=== PATIENT | male | born 1990 | race African-American/Black ===

== ENCOUNTER 2025-02-06 13:08 | Emergency (ER) | payer BC, SELFPAY ==
[2025-02-06 13:17] VITALS: BP 113/77; PULSE 72; RESP 16; TEMP 36.9; O2SAT 98
--- NOTE | 2025-02-06 13:36 | ED.MALEGU ---
HPI - Male Genitourinary General Chief complaint: Urogenital-Male Stated complaint: STD Exposure Time Seen by Provider: 02/06/25 13:29 Source: patient and RN notes reviewed Mode of arrival: ambulatory Limitations: no limitations History of Present Illness HPI Narrative: Patient presents today complaining of a white urethral discharge x1 week. Denies dysuria, hematuria, testicular pain or swelling, rash. States he had unprotected intercourse 1 week ago and has been notified by his partner yesterday that she has tested positive for chlamydia. Related Data Allergies Allergy/AdvReac Type Severity Reaction Status Date / Time No Known Allergies Allergy Verified 02/06/25 13:26 Review of Systems Review of Systems: CONSTITUTIONAL: Denies body aches, fever, chills, or sweats. EYES: Denies visual changes, redness, or discharge. ENT: Denies rhinorrhea, congestion, sore throat, or otalgia. CARDIOVASCULAR: Denies chest pain, palpitations, or edema. RESPIRATORY: Denies cough or dyspnea. GASTROINTESTINAL: Denies abdominal pain, nausea, vomiting, or diarrhea. GENITOURINARY: + urethral discharge. SKIN: Denies rash, itching, or wounds. MUSCULOSKELETAL: Denies back pain, joint pain, or myalgia. NEUROLOGIC: Denies headache, numbness, tingling, or weakness. PSYCH: Denies depression or anxiety. PMFSH Comments At time of signature, I have reviewed and agree with nursing past medical, surgical, social and family history unless otherwise noted. Please see nursing chart for further information. There is no relevant family history pertinent to the presenting complaint Exam Narrative: GENERAL: Well-appearing, well-nourished, and in no acute distress. HEAD: Normocephalic, atraumatic. EYES: EOMI. No redness or drainage. Conjunctivae normal. ENT: Mucous membranes pink and moist. NECK: Normal AROM. CHEST: No respiratory distress. : exam deferred EXTREMITIES: Normal range of motion. No edema. SKIN: Warm, dry, no rash. Capillary refill normal. Normal skin turgor. NEURO: No focal deficits. Alert and oriented x3. Gait steady. PSYCH: Normal affect. No signs of depression or anxiety. Course Course Level of Care: Express Care Visit Vital Signs Vital signs: Vital Signs Temperature 98.5 F 02/06/25 13:17 Pulse Rate 72 02/06/25 13:17 Respiratory Rate 16 02/06/25 13:17 Blood Pressure 113/77 02/06/25 13:17 Pulse Oximetry 98 02/06/25 13:17 Oxygen Delivery Room Air 02/06/25 13:17 Temperature 98.5 F 02/06/25 13:17 Pulse Rate 72 02/06/25 13:17 Respiratory Rate 16 02/06/25 13:17 Blood Pressure 113/77 02/06/25 13:17 Pulse Oximetry 98 02/06/25 13:17 Oxygen Delivery Room Air 02/06/25 13:17 Reviewed MDM - Male Genitourinary MDM Narrative Medical decision making narrative: Patient's urine will be sent to the hospital to be tested for gonorrhea, chlamydia, Trichomonas. Prophylactic Rocephin administered. Patient will be started on doxycycline and Flagyl to cover for chlamydia and Trichomonas. Patient agrees with plan. Anticipatory guidance given. Differential Diagnosis Differential diagnosis: Likely urinary tract infection, urethritis and other (Gonorrhea, chlamydia, Trichomonas) Critical Care Time Critical Care Time Critical Care Time: No Discharge Plan Discharge Clinical Impression: Exposure to chlamydia, Urethral discharge Patient Disposition: Home, Self-Care Condition: Stable Instructions: Antibiotic Form, Chlamydia (ED) Additional Instructions: Your urine sample has been sent off to test for gonorrhea, chlamydia, and trichomonas infections. Your test will typically take 24 hours to return. You will be notified by telephone if any of your tests come back positive. You have been treated with Rocephin in urgent care today to cover you for gonorrhea. Prescriptions for Flagyl and doxycycline have been sent to your pharmacy to cover you for trichomonas and chlamydia. If any of your tests come back positive you should need no further treatment. If any of your test come back positive, you will need to notify any partners that you have, and they will need to be tested and treated. If your tests come back negative and you are still experiencing symptoms, please follow-up with your PCP or urologist for further evaluation and treatment. If your symptoms worsen to include fever, abdominal pain, or back pain, please go to the hospital immediately. Patient Language: [place] Prescriptions: New doxycycline hyclate 100 mg tablet 100 mg PO BID 7 Days Qty: 14 0RF metronidazole 500 mg tablet 2,000 mg PO ONCE Qty: 4 0RF Follow-up/Referrals: PHYSICIAN,HOSPITAL ATTENDANT [Primary Care Provider] - Time of Disposition: 13:42
[2025-02-06] MEDS: cefTRIAXone 500 MG, LIDOCAINE 1% LOCAL INJ 1 ML IM (13:42)
[2025-02-06 20:08] LABS: Trichomonas Vag PCR NOT DETECTED (NOT DETECTE)
[2025-02-06 20:30] LABS: Chlamydia trachomatis NOT DETECTED (NOT DETECTE); Neisseria gonorrhoeae PCR DETECTED (NOT DETECTE)
== END 2025-02-06 13:57 | disposition home or self-care (01) ==
PROVIDERS: Emergency Provider Nurse Practitioner
DX: R36.9 Urethral discharge, unspecified (principal); Z20.2 Contact with and (suspected) exposure to infections with a predominantly sexual mode of transmission
CPT/HCPCS: 87491; 87591; 87661; 96372; 99203; G0463; J0696; J2003